=== PATIENT | female | born 1970 | race Caucasian/White ===

== ENCOUNTER 2016-10-25 16:42 | Emergency (ER) | payer OTHER ==
[~2016-10-25 16:42] MED LIST: ACULAR10 ML TOP; ALBUTEROL17 GM INH; AMOXICILLIN875 MG PO; ANAPROX DS550 M1; ANSAID100 MG PO; ANXIETY MED PO; BLOOD PRESSURE MED?; CELEXA PO; CERUMENEX OT; CLEOCIN150 M2 PO; COZAAR100 MG PO; CYMBALTA PO; DICLOFENAC PO; DOCUSATE SODIU100 MG PO; EC-NAPROSYN500 MG; EC-NAPROSYN500 MG PO; FENTANYL1 PATCH .1 TD; FERRO-TIME325 MG PO; FIORINAL CAPSUL1 CAP PO; FLEXERIL10 MG PO; GENOPTIC5 ML OD; GUAIFENESI1 TAB.SR . PO; IBUPROFEN PO; IBUPROFEN800 MG PO; KETOPROFEN PO; LISINOPRIL20 MG PO; LORTAB 10-5001 EACH PO; LORTAB 5/500 TA1 TA1 PO; MEDROL PO; MEDROL4 MG/DOSE- PO; MOBIC; MOTRIN600 MG PO; NAPROSYN-EC500 M1 PO; NAPROXEN SODIU500 MG PO; NO MEDICATIONS; NORCO1 TAB 10/3 PO; NORFLEX100 MG PO; ORUDIS75 M1 PO; PEN-VEE K PO; PERCOCET 10/3251 TAB PO; PERCOCET 51 UDTAB 5/ PO; PHENERGAN25 M1 PO; PREDNISONE PO; PREDNISONE50 MG PO; PROVERA10 MG PO; REGLAN10 MG PO; RELENZA5 MG/DISK INH; TORADOL10 MG PO; TYLENOL #3 PO; TYLOX1 CAP 5/50 PO; ULTRAM PO; VICODIN 5/1 TAB 5/50 PO; VICODIN 5/500 T1 TAB PO; VICODIN ES 7.51 EAC1 PO; VICODIN PO; VOLTAREN75 MG PO; ZANTAC150 MG PO; ZESTORETIC 10/11 TAB PO; ZITHROMAX PO; [UNRECOGNIZED DRUG - OTHER] PO
== END 2016-10-25 17:24 | disposition home or self-care (01) ==
LOC: SED 16:42
DX: S61.012A Laceration without foreign body of left thumb without damage to nail, initial encounter (principal); X99.8XXA Assault by other sharp object, initial encounter; Y92.009 Unspecified place in unspecified non-institutional (private) residence as the place of occurrence of the external cause
CPT/HCPCS: 29125; 99283

== ENCOUNTER 2016-11-14 16:16 | Emergency (ER) | payer OTHER ==
--- NOTE | ~2016-11-14 | CR126 ---
[facility] A Service of [facility] RADIOLOGY TEXT RESULTS PATIENT: JB HOWARD LOCATION: SED : [birth year] UNIT #: [id number] AGE: [address]: Antonia Goldsmith APRN SEX: F ORDER DR: [id number] [place] [id number] E MR#: [id number] Acc #: [id number] NAME: JB HOWARD : 1970 SEX: F STUDY DATE/TIME: 11/14/2016 15:53 UNIT: SED ROOM: STUDY DESCRIPTION: CR Foot Complete Min 3 View Lt Attending Physician: Antonia Goldsmith A.P.R.N. Ordering Physician: Antonia Goldsmith A.P.R.N. Primary Care Physician: Raj Mclain M.D. MEDICAL IMAGING REPORT This report is preliminary unless electronic signature is present. EXAM 3 views left foot. Date: 11/14/2016 HISTORY A 46-year-old female with left foot pain today after stepping off a step wrong. COMPARISON 3 views left foot 05/25/2011. FINDINGS No acute displaced left foot fracture is seen. Well corticated calcification is seen at the lateral margin of the interphalangeal joint of the fifth toe which is unchanged. There is prominent plantar calcaneal spur. No unexpected retained radiopaque foreign body is seen within the soft tissues. IMPRESSION Chronic changes of left foot, similar to the 05/25/2011. No acute findings. Dictated by... Lisbeth Thompson M.D. THIS IS AN ELECTRONICALLY VERIFIED REPORT Lisbeth Thompson M.D. at 11/15/2016 8:34 AM JAIME/sondra [facility] A Service [facility] RADIOLOGY TEXT RESULTS PATIENT: JB HOWARD LOCATION: SED : [birth year] UNIT #: [id number] AGE: [address]: Antonia Goldsmith APRN SEX: F ORDER DR: TD: 11/14/2016 20:57 JOB #: [id number] MEDICAL IMAGING REPORT Page 1 of 1
== END 2016-11-14 17:07 | disposition home or self-care (01) ==
LOC: SED 16:16
DX: S93.622A Sprain of tarsometatarsal ligament of left foot, initial encounter (principal); X50.1XXA Overexertion from prolonged static or awkward postures, initial encounter; Y92.009 Unspecified place in unspecified non-institutional (private) residence as the place of occurrence of the external cause; I10 Essential (primary) hypertension
CPT/HCPCS: 29540; 73630; 99283

== ENCOUNTER 2017-03-10 20:00 | Emergency (ER) | payer OTHER ==
[~2017-03-10] VITALS: Ht 172.7 cm; Wt 63.5 kg
--- NOTE | ~2017-03-10 | CR111 ---
[facility] A Service of [facility] RADIOLOGY TEXT RESULTS PATIENT: JB HOWARD LOCATION: SED : [birth year] UNIT #: [id number] AGE: [address]: Martha Bustamante MD SEX: F ORDER DR: [id number] [place] [id number] E MR#: [id number] Acc #: [id number] NAME: JB HOWARD : 1970 SEX: F STUDY DATE/TIME: 03/10/2017 21:24 UNIT: SED ROOM: STUDY DESCRIPTION: CR Finger 2 View 3rd Rt Attending Physician: Martha Bustamante M.D. Ordering Physician: Martha Bustamante M.D. Primary Care Physician: Raj Mclain M.D. MEDICAL IMAGING REPORT This report is preliminary unless electronic signature is present. EXAM Right third finger, 03/10/2017 INDICATIONS Right third finger pain. Laceration. FINDINGS Three views of the right third digit without comparison. There is no acute fracture, dislocation, or foreign body. IMPRESSION No foreign body. Dictated by... Rian Chowdhury M.D. THIS IS AN ELECTRONICALLY VERIFIED REPORT Rian Chowdhury M.D. at 03/11/2017 7:52 PM RPC/psc TD: 03/11/2017 19:13 JOB #: [id number] MEDICAL IMAGING REPORT Page 1 of 1
== END 2017-03-10 22:57 | disposition home or self-care (01) ==
LOC: SED 20:00
DX: S91.202A Unspecified open wound of left great toe with damage to nail, initial encounter (principal); S61.212A Laceration without foreign body of right middle finger without damage to nail, initial encounter; G43.909 Migraine, unspecified, not intractable, without status migrainosus; F41.9 Anxiety disorder, unspecified; Z88.8 Allergy status to other drugs, medicaments and biological substances; W25.XXXA Contact with sharp glass, initial encounter; Y92.009 Unspecified place in unspecified non-institutional (private) residence as the place of occurrence of the external cause
CPT/HCPCS: 29550; 73140; 99283